=== PATIENT | female | born 1970 | race Caucasian/White ===

== ENCOUNTER → 2024-06-09 | Outpatient (CLI) | payer BC, SELFPAY ==
--- NOTE | 2024-06-09 12:40 | XR_ITS ---
Examination: Bone densitometry Date and time of exam:June 09, 2024 1300 hours INDICATIONS: Menopause age 40, breast carcinoma diagnosis history as well as lymphoma non-Hodgkin's lymphoma, personal history osteopenia Technique: Lumbar spine and hip total bone mineralization values of an calculated. Peak reference and age match control results have been displayed. Findings: Lumbar spine total bone mineralization is0.905 gm/cm2. This is 1.3 standard deviations below peak reference. This is 0.2 standard deviations below age-matched controls. Hip total bone mineralization is 0.772 gm/cm2 This is 1.4 standard deviations below peak reference. This is 0.7 standard deviations below age-matched controls Impression: There is osteopenia based on lumbar spine measurements. There is osteopenia based on hip measurements Lumbar mineralization is increased 2.5% compared with April 21, 2022 Hip mineralization is increased 4.0% compared with April 21, 2020
== END | disposition home or self-care (01) ==
PROVIDERS: PCP Internal Medicine Hematology & Oncology; Referring Provider Internal Medicine Hematology & Oncology; Visit Provider Internal Medicine Hematology & Oncology
DX: M85.89 Other specified disorders of bone density and structure, multiple sites (principal)
CPT/HCPCS: 77080

== ENCOUNTER → 2025-02-21 | Outpatient (CLI) | payer BC, SELFPAY ==
--- NOTE | 2025-02-21 11:00 | XR_ITS ---
Examination: Screening digital mammography, unilateral right Computer aided detection 3-D breast Tomosynthesis, unilateral Date and time of exam: February 22, 2020 5:10 AM, compared to mammograms dating to September 04, 2020 Indication: Screening Technique: Nonmagnified MLO, CC views of the right breast to been obtained, reconstructed from 3-D Tomosynthesis images. R2 computer aided detection program utilized for evaluation of suspicious masses and/or abnormal calcifications. 3-D Tomosynthesis images obtained. Findings: The breast is heterogeneously dense, which may obscure small masses Benign calcifications. No interval suspicious masses Impression: BI-RADS category II Benign findings Recommend 1 year follow-up mammogram.
== END | disposition home or self-care (01) ==
LOC: CDIM 09:47
PROVIDERS: PCP Family Medicine
DX: Z12.31 Encounter for screening mammogram for malignant neoplasm of breast (principal); R92.323 Mammographic fibroglandular density, bilateral breasts; R92.1 Mammographic calcification found on diagnostic imaging of breast
CPT/HCPCS: 77063; 77067